=== PATIENT | male | born 1990 | race African-American/Black ===

== ENCOUNTER 2017-05-10 15:05 | Inpatient (IN) | payer SELFPAY ==
[~2017-05-10] VITALS: Ht 170.2 cm; Wt 116.7 kg
[2017-05-10 20:34] LABS: BASOPHILS % 0.8 % (0.0-2.0); EOSINOPHILS % 4.4 % (0.0-5.0); HEMATOCRIT. 41.9 % (42.0-52.0); HEMOGLOBIN. 13.9 g/dL (14.0-18.0); LYMPHOCYTES % 33.4 % (20.0-50.0); MEAN CORPUSCULAR HEMOGLOBIN 26.8 pg (28.0-32.0); MEAN CORPUSCULAR VOLUME 80.6 fL (80.0-94.0); MEAN PLATELET VOLUME 11.2 fl (7.4-10.4); NEUTROPHILS % 55.4 % (40.0-76.0); PLATELET 182 x1000/uL (130-400); RED BLOOD CELL COUNT 5.19 mill/uL (4.7-6.1); RED CELL DISTRIBUTION WIDTH 13.5 % (11.6-14.6)
[2017-05-10 20:36] LABS: CHLORIDE 105 mEq/L (98-107)
[2017-05-10 20:37] LABS: INR 1.1; PROTHROMBIN TIME 11.1 sec (9.4-11.6)
[2017-05-10 20:45] LABS: CARBON DIOXIDE 30 mEq/L (21-32); TROPONIN I < 0.02 ng/mL (0.00-0.04)
[2017-05-10] MEDS ORDERED: CLONIDINE 0.2MG TABLET PO ONE (22:45)
[2017-05-11] MEDS ORDERED: ASPIRIN 325MG EC TABLET PO ONE
[2017-05-11] MEDS ORDERED: GUAIFENESIN 200MG/10ML SUGAR FREE UDC PO PRN (00:15)
[2017-05-11] MEDS ORDERED: ONDANSETRON HCL 4MG/2ML VIAL IV PRN (00:15)
[2017-05-11] MEDS ORDERED: ACETAMINOPHEN 650MG/20.3ML UDC GT PRN (00:15)
[2017-05-11] MEDS ORDERED: NA PHOS,M-B/NA PHOS,DI-BA ENEMA 118ML PR PRN (00:15)
[2017-05-11] MEDS ORDERED: IPRATROPIUM/ALBUTEROL 0.5-3(2.5)MG/3ML NEB INH PRN (00:15)
[2017-05-11] MEDS ORDERED: ACETAMINOPHEN 650MG SUPP PR PRN (00:15)
[2017-05-11] MEDS ORDERED: DOCUSATE SODIUM 100MG CAPSULE PO PRN (00:15)
[2017-05-11] MEDS ORDERED: DIPHENHYDRAMINE 50MG/ML VIAL IV PRN (00:15)
[2017-05-11] MEDS ORDERED: MAGNESIUM/ALUMINUM HYDROXIDE/SIMETHICONE 30ML UDC PO PRN (00:15)
[2017-05-11] MEDS ORDERED: ACETAMINOPHEN 325MG TABLET PO PRN (00:15)
[2017-05-11] MEDS ORDERED: CLONIDINE 0.1MG TABLET PO ONE (01:00)
[2017-05-11 06:30] LABS: CREATINE KINASE 44 IU/L (39-308); TROPONIN I < 0.02 ng/mL (0.00-0.04)
[2017-05-11 09:15] VITALS: BP 174/125
[2017-05-11 09:29] LABS: CLARITY URINE CLEAR (CLEAR); COLOR URINE YELLOW (YELLOW); KETONES URINE NEGATIVE (NEGATIVE); LEUKOCYTE ESTERASE URINE NEGATIVE (NEGATIVE); NITRITE URINE NEGATIVE (NEGATIVE); OCCULT BLOOD URINE NEGATIVE (NEGATIVE); PROTEIN URINE NEGATIVE (NEGATIVE); SPECIFIC GRAVITY URINE 1.023 (1.005-1.030); UROBILINOGEN URINE 0.2 E.U./dL (0.2-1.0)
[2017-05-11] MEDS ORDERED: AMLO10TA80 PO (09:59)
[2017-05-11] MEDS: AMLODIPINE 10MG TABLET PO SCH (10:08)
[2017-05-11] MEDS: CLONIDINE 0.1MG TABLET PO PRN ×2 (10:08→15:52)
[2017-05-11] MEDS: FUROSEMIDE 40MG TABLET PO SCH (10:08)
[2017-05-11] MEDS: ENOXAPARIN 30MG/0.3ML SYR SUBCUT SCH ×2 (10:09→20:33)
[2017-05-11 10:26] LABS: *AMPHETAMINES SCREEN URINE NEGATIVE (NEGATIVE); *BARBITURATES SCREEN URINE NEGATIVE (NEGATIVE); *BENZODIAZEPINES SCREEN URINE NEGATIVE (NEGATIVE); *COCAINE SCREEN URINE NEGATIVE (NEGATIVE); CANNABINOID URINE SCREEN NEGATIVE (NEGATIVE); METHADONE URINE SCREEN NEGATIVE (NEGATIVE); OPIATES URINE SCREEN NEGATIVE (NEGATIVE); PHENCYCLIDINE URINE SCREEN NEGATIVE (NEGATIVE)
[2017-05-11 12:00] VITALS: BP 160/99
[2017-05-11 12:09] LABS: T4 FREE 1.13 ng/dL (0.76-1.46)
[2017-05-11] MEDS: SODIUM CHLORIDE 0.9% INJ 3ML FLUSH IVF SCH ×2 (14:00→20:32)
[2017-05-11 16:00] VITALS: BP 158/106
[2017-05-11 16:29] LABS: CREATINE KINASE 44 IU/L (39-308); CREATINE KINASE MB FRACTION 0.7 ng/mL (0.5-3.6); TROPONIN I < 0.02 ng/mL (0.00-0.04)
[2017-05-11] MEDS: HYDROCHLOROTHIAZIDE 25MG TABLET PO SCH (19:02)
[2017-05-11 20:00] VITALS: BP 135/93
[2017-05-11] MEDS: HYDRALAZINE HCL 50MG TABLET PO SCH (20:32)
[2017-05-11 23:55] VITALS: BP 132/84
[2017-05-12 04:30] VITALS: BP 133/95
[2017-05-12] MEDS: SODIUM CHLORIDE 0.9% INJ 3ML FLUSH IVF SCH (05:06)
[2017-05-12] MEDS: CLONIDINE 0.1MG TABLET PO PRN (05:10)
[2017-05-12 07:19] LABS: BASOPHILS % 0.5 % (0.0-2.0); HEMATOCRIT. 40.9 % (42.0-52.0); HEMOGLOBIN. 13.6 g/dL (14.0-18.0); LYMPHOCYTES % 35.9 % (20.0-50.0); MEAN CORPUSCULAR HEMOGLOBIN 26.5 pg (28.0-32.0); MEAN CORPUSCULAR VOLUME 79.5 fL (80.0-94.0); MEAN PLATELET VOLUME 10.9 fl (7.4-10.4); NEUTROPHILS % 51.6 % (40.0-76.0); PLATELET 158 x1000/uL (130-400); RED BLOOD CELL COUNT 5.14 mill/uL (4.7-6.1); RED CELL DISTRIBUTION WIDTH 13.4 % (11.6-14.6)
[2017-05-12 08:00] VITALS: BP 134/91
[2017-05-12 08:35] LABS: CARBON DIOXIDE 27 mEq/L (21-32); CHLORIDE 104 mEq/L (98-107); LDL CHOLESTEROL 82 mg/dL (5-100)
[2017-05-12 08:41] LABS: CREATINE KINASE MB FRACTION 0.5 ng/mL (0.5-3.6); HDL CHOLESTEROL 47 mg/dL (40-59)
[2017-05-12] MEDS: ENOXAPARIN 30MG/0.3ML SYR SUBCUT SCH (08:55)
[2017-05-12] MEDS: AMLODIPINE 10MG TABLET PO SCH (08:56)
[2017-05-12] MEDS: HYDRALAZINE HCL 50MG TABLET PO SCH (08:56)
[2017-05-12] MEDS: HYDROCHLOROTHIAZIDE 25MG TABLET PO SCH (08:56)
[2017-05-12] MEDS: FUROSEMIDE 40MG TABLET PO SCH (08:56)
[2017-05-12] MEDS ORDERED: HYDR-4135 PO (10:19)
[2017-05-12] MEDS ORDERED: AMLO10TA80 PO (10:19)
[2017-05-12] MEDS ORDERED: HYDR25TA PO (10:19)
[2017-05-12] MEDS ORDERED: FURO40TA5 PO (10:19)
[2017-05-12 12:07] VITALS: BP 134/89
[2017-05-12 14:10] VITALS: BP 134/89
== END 2017-05-12 16:00 | disposition home or self-care (01) | DRG 204 ==
LOC: ER 16:15 → 5WST 05-11 00:09 → EDBEDREQTM 05-11 00:13 → EDBEDREQ 05-11 00:13 → ENRESERV 05-11 07:24
PROVIDERS: ADMIT Family Medicine; ATTEND Family Medicine
DX: R55 Syncope and collapse (principal); Z68.41 Body mass index [BMI] 40.0-44.9, adult; I10 Essential (primary) hypertension; E66.9 Obesity, unspecified; J45.909 Unspecified asthma, uncomplicated; Z82.49 Family history of ischemic heart disease and other diseases of the circulatory system; Z87.891 Personal history of nicotine dependence
CPT/HCPCS: 36415; 70450; 71045; 80053; 80061; 80305; 81003; 82550; 82553; 82962; 83036; 83880; 84439; 84443; 84484; 85025; 85379; 85610; 85730; 93005; 99285; J1650